=== PATIENT | male | born 1975 | race Caucasian/White ===

== ENCOUNTER 2024-12-16 10:01 | Day surgery (SDC) | payer MEDICAID ==
[~2024-12-16] VITALS: Ht 172.7 cm; Wt 179.0 kg
[~2024-12-16 10:01] MED LIST: ALBU18HF2; AMI200T PO; APIX5TAB3 PO; BENZ200C53 PO; BUDE10.2; BUPR1FIL3; CALC60CR8 TOP; CYCL-1 PO; DOCU-395; FAMO40TA86 PO; FURO-149 PO; NALO4SPR BOTHNARES; PHEN37.58 PO; POTA8TAB69 PO; SACU1TAB4 PO; SILD100T70 PO; SPIR25TA5 PO; TEST200V33 IM; TIRZ2.5P3 SQ
[2024-12-16 10:25] VITALS: BP 137/79; PULSE 107; RESP 16; TEMP 98.5; O2SAT 95
[2024-12-16] MEDS ORDERED: fentaNYL/PF 50MCG/1 ML 2ML syringe IV ONE (10:25)
[2024-12-16] MEDS ORDERED: MIDAZolam 1mg/ml 10ml vial IV ONE (10:25)
[2024-12-16] MEDS ORDERED: normal saline 1000ml 1,000 ML IV SCH (10:25)
[2024-12-16] MEDS ORDERED: midazolam 1 mg/ML 2ml injection ONE (12:03)
[2024-12-16] MEDS ORDERED: amiodarone 50MG/ML inj IV ONE (12:03)
[2024-12-16] MEDS ORDERED: fentaNYL/PF 50MCG/1 ML 2ML syringe ONE (12:03)
[2024-12-16] MEDS ORDERED: atropine 0.1mg/ml 10ml syringe ONE (12:04)
[2024-12-16 13:20] VITALS: BP 126/65; PULSE 92; RESP 14; O2SAT 93
--- NOTE | 2024-12-16 13:20 | PROCEDURE NOTE CC ---
Procedure Note Providers to CC CC: FEDE FORTE MD ~ Description Planned Procedure Cardioversion Indications Symptomatic Atrial Fibrillation Post Operative Dx: Same Type of Anesthesia Moderate Sedation. Description It was confirmed that patient has been taking oral anticoagulation without interruption for at least 4 weeks. The appropriate time-out procedure was performed including proper identification of the patient, physician, procedure, documentation, and there were no safety issues identified. The patient participated actively in this. After sedation was achieved, the patient was placed in the supine position and hands free patches were placed on their chest in the AP-lateral position. 1 synchronized cardioversion was provided at 200 Joules with conversion to normal sinus rhythm. This was confirmed on EKG. Complication: None The patient tolerated the procedure well without complications. DESI FORTE MD Dec 16, 2024 13:20
--- NOTE | 2024-12-16 13:24 | ELECTROCARDIOGRAPH REPORT ---
[facility] Test Date: 2024-12-16 Test Time: 13:22:57 Pat Name: MARIAH MCDANIELS Department: [facility] Patient ID: [facility]-[id number] Room: Gender: M Pest Locator: GABBIE : 1975 Requested By: DESI WATSON Order Number: [id number] Reading MD: Dr. Caridad Watson Measurements Intervals [place] Rate: 85 P: 69 AR: 234 QRS: 76 QRSD: 92 T: 61 QT: 357 QTc: 425 Interpretive Statements Sinus rhythm Prolonged AR interval ST elev, probable normal early repol pattern Electronically Signed On 12-16-2024 18:25:[address] Caridad Watson Please click the below link to view image of tracing.
[2024-12-16 13:35] VITALS: BP 115/73; PULSE 83; RESP 15; O2SAT 95
[2024-12-16 13:50] VITALS: BP 113/69; PULSE 87; RESP 14; O2SAT 94
[2024-12-16 14:05] VITALS: BP 116/83; PULSE 69; RESP 15; O2SAT 95
== END 2024-12-16 14:10 | disposition home or self-care (01) ==
LOC: SSTAY O 10:01
PROVIDERS: ATTEND Student in an Organized Health Care Education/Training Program
DX: I48.91 Unspecified atrial fibrillation (principal); I10 Essential (primary) hypertension; I42.9 Cardiomyopathy, unspecified; Z88.6 Allergy status to analgesic agent; Z88.0 Allergy status to penicillin; Z79.899 Other long term (current) drug therapy
CPT/HCPCS: 92960; 93005; J2250; J3010; J7040; 99152; J0282; J0461

== ENCOUNTER 2025-01-13 11:47 | Day surgery (SDC) | payer MEDICAID ==
[~2025-01-13] VITALS: Ht 172.7 cm; Wt 124.5 kg
[~2025-01-13 11:47] MED LIST changes: -AMI200T PO; +AMIO200T76 PO; -CALC60CR8 TOP; -DOCU-395; +DOCU-395 PO
[2025-01-13] MEDS ORDERED: fentaNYL/PF 50MCG/1 ML 2ML syringe ONE ×2 (12:05→13:04)
[2025-01-13] MEDS ORDERED: midazolam 1 mg/ML 2ml injection ONE ×2 (12:05→13:03)
[2025-01-13 12:07] VITALS: BP 115/54; PULSE 83; RESP 16; TEMP 98.8; O2SAT 96
[2025-01-13] MEDS ORDERED: MIDAZolam 1mg/ml 10ml vial IV ONE (12:10)
[2025-01-13] MEDS ORDERED: fentaNYL/PF 50MCG/1 ML 2ML syringe IV ONE (12:10)
[2025-01-13] MEDS ORDERED: normal saline 1000ml 1,000 ML IV SCH (12:10)
[2025-01-13 12:45] VITALS: BP 104/63; PULSE 95; RESP 16; O2SAT 92; O2SAT 96
[2025-01-13] MEDS ORDERED: amiodarone 50MG/ML inj IV ONE (13:19)
[2025-01-13] MEDS ORDERED: atropine 0.1mg/ml 10ml syringe ONE (13:19)
[2025-01-13 13:44] VITALS: BP 104/63; PULSE 95; RESP 16; O2SAT 92
--- NOTE | 2025-01-13 13:53 | ELECTROCARDIOGRAPH REPORT ---
[facility] Test Date: 2025-01-13 Test Time: 13:48:04 Pat Name: MARIAH MCDANIELS Department: [facility] Patient ID: [facility]-[id number] Room: Gender: M [employer] Operator: GABBIE : 1975 Requested By: DESI FORTE Order Number: [id number] Reading MD: Dr. Attila Mayes Measurements Intervals [place] Rate: 91 P: 68 NE: 245 QRS: 76 QRSD: 94 T: 56 QT: 333 QTc: 410 Interpretive Statements Sinus rhythm Prolonged NE interval ST elev, probable normal early repol pattern Electronically Signed On 01-14-2025 8:36:[address] Attila Mayes Please click the below link to view image of tracing.
[2025-01-13 13:54] VITALS: BP 116/70; PULSE 94; RESP 16; O2SAT 92
[2025-01-13 14:04] VITALS: BP 116/70; PULSE 94; RESP 16; O2SAT 92
--- NOTE | 2025-01-25 11:54 | CARDIOLOGY REPORT ---
DATE OF SERVICE: 01/13/2025 DICTATING PHYSICIAN: Caridad Watson MD CARDIOVERSION DATE OF STUDY: 01/13/2025 NAME OF STUDY: Electrical cardioversion. PROCEDURE: The patient was brought to cardiac short stay where she was prepped in the usual manner. After gradual increments of Versed and fentanyl, and conscious sedation was obtained, the patient was cardioverted. The patient remained clinically and hemodynamically stable throughout the procedure. IMPRESSION: Successful electrical cardioversion to normal sinus rhythm without complication. Caridad Watson MD TID: [id number] RECEIPT: [id number]
== END 2025-01-13 14:15 | disposition home or self-care (01) ==
LOC: SSTAY O 11:47
PROVIDERS: ATTEND Student in an Organized Health Care Education/Training Program
DX: I48.91 Unspecified atrial fibrillation (principal); I10 Essential (primary) hypertension; I42.9 Cardiomyopathy, unspecified; Z88.0 Allergy status to penicillin; Z88.6 Allergy status to analgesic agent; Z79.899 Other long term (current) drug therapy
CPT/HCPCS: 92960; 93005; J2250; J3010; J7030; 99152; J0282; J0461